=== PATIENT | female | born 1950 | race Caucasian/White ===

== ENCOUNTER 2018-09-07 20:57 | Observation (INO) | payer MEDICARE ==
[2018-09-07] MEDS ORDERED: Albuterol Sulfate 1.25 MG/3 ML NEB ONE (21:14)
[2018-09-07] MEDS ORDERED: methylPREDNISolone Sod Succ/PF 125 MG/2 ML VIAL ONE (21:14)
[2018-09-08 00:19] LABS: Troponin I Less than 0.010 ng/mL (< 0.028)
[2018-09-08 00:50] VITALS: BMI 30.7
[2018-09-08 01:54] LABS: Troponin I Less than 0.010 ng/mL (< 0.028)
[2018-09-08] MEDS ORDERED: Ondansetron PF 4 MG/2 ML Vial IVP PRN (02:43)
[2018-09-08] MEDS ORDERED: PROVENTIL INHALER 6.7 G (200 INHALATIONS) INH PRN (02:46)
--- NOTE | 2018-09-08 03:29 | PDOC.EVN ---
Event Note - Event Note Event Note: h&p dictated [id number]
--- NOTE | 2018-09-08 04:35 | HP ---
PRIMARY CARE PHYSICIAN: Blade. CHIEF COMPLAINT: Tightness in her chest. HISTORY OF PRESENT ILLNESS: This is a 68-year-old female with a history of type 2 diabetes, tobacco use, hypertension who presents with a chief complaint of wheezing and tightness in her chest during a n argument. Patient is accompanied at bedside by her significant other who states that they are here because they do not want her to become "what he has," by which he states that he has only "have his heart is working." At the time of my evaluation, the patient is actually predominantly, extremely tearful over recent st ressful events, stemming from this past or approximately 3 days ago. It appears that the pa tient typically resides with her juifwkrg-is-sgt and granddaughter. On , her birkctqt-lu-feh had issued a vacation or an eviction notice to the patient. Since then, the patient's oopjbjch-ag-f aw and the patient's granddaughter have not been in the home and the patient is extremely frantic reg arding where she will be able to go to live and in addition, she is concerned about the whereabouts o f her granddaughter. REVIEW OF SYSTEMS: As per HPI. Constitutional: No fevers, no chills, no significant weight loss or gain. HEENT: No recent headaches, lightheadedness, dizziness, or vision changes. Cardiovascular: Some component of chest tightness with her shortness of breath, no chest pressure, left-sided arm nu mbness or tingling. Respiratory: Wheezing and chest tightness as noted above. The patient endorses some respiratory congestion and some postnasal drip. Denies cough. Gastrointestinal: Denies any n ausea, vomiting, abdominal pain, diarrhea, or constipation issues. Genitourinary: Denies any dysuri a, changes in urinary frequency, quality or quantity. Remainder of the review of systems is otherwis e negative. PAST MEDICAL HISTORY: As per above; 1. Status post bilateral parathyroid exploration and removal of subtotal parathyroid gland. 2. Status post hysterectomy. 3. Status post appendectomy. 4. Type 2 diabetes. 5. Hypertension. 6. Hyperlipidemia. 7. Chronic obstructive pulmonary disease with "asthmatic component." 8. Rheumatic fever at the age of 6. 9. Osteopenia. 10. Depression. FAMILY HISTORY: Significant for hypertension in her father. Ovarian cancer, type 2 diabetes, hypert ension, and heart disease in her mother and a son with brain tumor who passed in 11/2017. HOME MEDICATIONS: Per the EMR, the patient's regimen currently includes Ventolin inhaler 2 puffs q.4 p.r.n., umeclidinium bromide 1 inhalation daily, montelukast, Singulair 10 mg p.o. at bedtime, fluti casone, salmeterol, or Advair Diskus 250/50 one inhalation b.i.d., ranitidine 150 mg p.o. q.a.m., lis inopril 1 tab p.o. q.a.m., atorvastatin 1 tab p.o. at bedtime, metformin 1 tab p.o. at bedtime, sertr olga 1 tab p.o. q.a.m. ALLERGIES: Include ADHESIVES, LATEX, and LEVAQUIN. SOCIAL HISTORY: The patient is currently without a place to live. Her next closest living relative is a half sister who lives in [place], [place] and the patient states that she guesses she will have t o move there. The patient currently is a half a pack a day smoker. Denies any alcohol or illicit dr ug use. She is accompanied today with her significant other at bedside who would be her medical deci ludwig maker if she is unable to make her own medical decisions. The patient indicates she wishes to b e FULL CODE at this point in time. Please see also the patient's significant social issues as noted above. The patient states she is worried that her pdftqdiy-jq-pva is in a . PHYSICAL EXAMINATION: GENERAL: The patient is awake, alert, appropriate, conversant, extremely anxious. HEENT: Normocephalic, atraumatic. Equal ocular motions are intact. Moist mucous membranes. CARDIOVASCULAR: S1, S2. No murmurs, rubs, or gallops. Pulses 2+ bilateral upper extremities. No p itting pedal edema. RESPIRATORY: Reasonable air movement. No wheezes, rales, or rhonchi. Grossly clear to auscultation . ABDOMEN: Positive bowel sounds, soft, nontender to palpation. MUSCULOSKELETAL: Moving all 4 extremities. IMAGING: On 09/07/2018, chest x-ray: Impression: "Unremarkable AP view of chest." Film was viewed by myself penetration, I grossly agree with the read. LABORATORY DATA: WBC 10.6, hemoglobin 17.0, hematocrit 49.2, platelets 267,000. D-dimer 0.27. Sodi um 140, potassium 3.7, chloride 106, bicarbonate 24, BUN 9, creatinine 0.77, glucose 142, calcium 11. 6, total bilirubin 0.7, AST 16, ALT 17, alkaline phosphatase 152. Troponin less than 0.1 x3. Total protein 7.2, albumin 4.6, TSH 1.879. ASSESSMENT AND PLAN: This is a 68-year-old female who presenting with a chief complaint of chest tig htness. 1. Chest tightness, concern for cardiac etiology. We will go ahead and troponins are negative x3. Recheck an EKG. Check echocardiogram to consider a stress test in this patient as well given her ris k factors. Question of whether or not there is a respiratory component. The patient is a tobacco us er. The patient does not overtly appear to be having chronic obstructive pulmonary disease exacerbat ion. We will continue with DuoNeb as needed. Concern for the possibility of a panic attack as well. 2. Polycythemia with elevated hemoglobin and hematocrit, suspect secondary to tobacco use as noted leti flores. 3. Elevated calcium. We will recheck in the morning and continue to monitor. Elevated alkaline awa sphatase, very mildly elevated, we will again recheck. 4. Diet: Cardiac as tolerated. 5. Activity: As tolerated. 6. Deep venous thrombosis prophylaxis with enoxaparin. Admit the patient to observation status.
[2018-09-08 05:07] LABS: #Lymphocytes 0.8 thou/uL (1.20-3.40); #Monocytes 0.1 thou/uL (0.11-0.59); #Neutrophils 6.6 thou/uL (1.40-6.50); %Basophils 0.5 % (0.0-1.0); %Eosinophils 0.3 % (0.0-10.0); %Lymphocytes 10.7 % (21.0-51.0); %Monocytes 1.2 % (0.0-10.0); %Neutrophils 87.3 % (42.0-75.0); Hemoglobin 15.2 g/dL (12.0-16.0); Mean Corpuscular HGB CONC 32.5 g/dL (32.0-36.0); Mean Corpuscular Hemoglobin 30.6 pg (27.0-31.0); Mean Corpuscular Volume 94.2 fL (78.0-98.0); Mean Platelet Volume 7.2 fL (7.4-10.4); Platelet Count 236 thou/uL (130-400); RBC Distribution Width 12.5 % (11.5-14.5); Red Blood Cell (RBC) Count 4.97 mill/uL (4.20-5.40); White Blood Cell (WBC) Count 7.5 thou/uL (4.8-10.8)
[2018-09-08 05:24] LABS: Anion Gap 13 mmol/L (10-20); BUN (Urea Nitrogen) 11 mg/dL (9.8-20.1); Calc. Creatinine Clearance 77 mL/min (70-130); Calcium 10.6 mg/dL (7.8-10.44); Carbon Dioxide 22 mmol/L (23-31); Cardiac Risk 2.5 (Less than 4.5); Chloride 105 mmol/L (98-107); Cholesterol 173 mg/dl (< 200 Desired); Estimated GFR-MDRD 67; Glucose 270 mg/dL (80-115); HDL Cholesterol 69 mg/dL (>60 Neg Risk); LDL Cholesterol, Calculated 93 mg/dL; Potassium 4.1 mmol/L (3.5-5.1); Sodium 136 mmol/L (136-145); Triglycerides 55 mg/dL (Less than 150)
[2018-09-08] MEDS ORDERED: Mometasone/Formoterol 120 PUFF INHALER INH SCH (06:30)
[2018-09-08] MEDS: Ipratropium Bromide 2.5 ml Neb NEB SCH ×2 (07:08→12:28)
[2018-09-08] MEDS ORDERED: Famotidine 20 MG TAB PO SCH (09:00)
[2018-09-08] MEDS ORDERED: Non-Formulary Item 1 EACH (Ranitidine Hcl [Ranitidine Hcl] 150 MG) PO SCH (09:00)
[2018-09-08] MEDS ORDERED: Lisinopril 10 MG TAB PO SCH (09:00)
[2018-09-08] MEDS ORDERED: Famotidine/PF 20 mg/2ml Vial SLOW IVP SCH (09:00)
[2018-09-08] MEDS ORDERED: Non-Formulary Item 1 EACH (Fluticasone/Salmeterol [Advair Diskus 250/50] 1 INH) IH SCH (09:00)
[2018-09-08] MEDS ORDERED: Enoxaparin Sodium 40 MG/0.4 ML SYRINGE SC SCH (09:00)
[2018-09-08] MEDS ORDERED: Non-Formulary Item 1 EACH (Umeclidinium Bromide [Incruse Ellipta] 1 INH) IH SCH (09:00)
[2018-09-08] MEDS ORDERED: Regadenoson 0.4 MG/5 ML SYRINGE ONE (12:52)
[2018-09-08 16:01] VITALS: BP 143/63; TEMP 98.3
--- NOTE | 2018-09-08 17:00 | NM ---
MYOCARDIAL PERFUSION QUANTITATIVE GATED SPECT STUDY: 09/08/2018 HISTORY: Chest pain. DOSE: Technetium 99m Cardiolite 28 millicuries for the stress portion of the exam and 10 millicuries for th e resting portion of the exam. The patient was stressed using 0.4 mg of Lexiscan. FINDINGS: Myocardial perfusion evaluation demonstrates no definite evidence of myocardial ischemia or scar. No evidence of reversible defects seen. No evidence of fixed defects seen. Ejection fraction measures 82%. IMPRESSION: Normal myocardial perfusion and quantitative gated SPECT study. POS: ZENON
--- NOTE | 2018-09-08 20:27 | DIS ---
DISCHARGE DIAGNOSES: 1. Chest pain, noncardiac, stable. 2. Polycythemia, stable. 3. History of type 2 diabetes, stable. 4. History of hypertension, stable. CONSULTATIONS: None. PERTINENT LABORATORY AND DIAGNOSTIC FINDINGS: WBC 7.5, RBC 4.97, hemoglobin 15.2, platelet 236. Sod ium 136, potassium 4.1, creatinine 0.84. Troponin is less than 0.010 x3. Triglycerides 55, total ch olesterol 173, LDL 93, HDL 69. Echocardiogram showed left ventricular ejection fraction estimated at 55%-60%, mild mitral regurgitation is present, mild tricuspid regurgitation. Stress test revealed n ormal myocardial perfusion with no evidence of fixed defect seen, no evidence of reversible defect se en. HOSPITAL COURSE: Ms. Pollack is a pleasant 68-year-old female who had presented to [facility] via EMS for chest pain. Her initial workup included a serial troponin, which was foun d to be less than 0.010. She had reported going through a situation with her family as they were rec ently evicted from their home. She is worried that she will not have a place to stay. She has been very frantic and also concerned about the whereabouts of her granddaughter. She and her were living with her ktibudfv-vb-ofk and granddaughter. She states that for the past 3 days, they have b een dealing with this situation, which caused her much anxiety. She had developed chest pain with wh eezing and tightness in her chest. She states that this has been ongoing on and off for the last 3 d ays when they first found out about the eviction. She was admitted under observation status. Tropon ins were trended and found to be negative x3. She also underwent stress test, which showed a normal myocardial perfusion scan. An echocardiogram was also done and displayed a left ventricular ejection fraction of 55%-60%. During hospital course, she was continued on her home medications. Her chest pain and shortness of breath resolved spontaneously. She was seen and examined prior to discharge wi th her at bedside. She was instructed to continue her home medication. It was determined th at her chest pain was noncardiac etiology. She was given further resources as she may be moving out of town with family members in the meantime until they find another place to stay. She was given emo tional support. She was instructed to find a PCP and it was recommended that she follow up in 1-2 we eks. She had verbalized her understanding of discharge plan and she was found to be medically stable for discharge home on 09/08/2018. DISCHARGE MEDICATIONS: 1. Lisinopril 10 mg daily. 2. Metformin 500 mg p.o. at bedtime. 3. Sertraline 50 mg p.o. q.a.m. 4. Atorvastatin 20 mg p.o. at bedtime. 5. Ventolin HFA inhaler, 2 puffs inhalation q.4 hours p.r.n. wheezing. 6. Ranitidine 150 mg p.o. q.a.m. 7. Incruse Ellipta 62.5 mcg 1 inhalation daily. 8. Montelukast 10 mg p.o. at bedtime. 9. Fluticasone/salmeterol 250/50 one inhalation b.i.d. FOLLOWUP: The patient was instructed to follow up with primary care physician in 1-2 weeks. CONDITION ON DISCHARGE: Stable. DIET: Heart healthy. ACTIVITY: As tolerated. DISPOSITION: Home on 09/08/2018.
[2018-09-08] MEDS ORDERED: metFORMIN 500 MG TAB PO SCH (21:00)
[2018-09-08] MEDS ORDERED: Atorvastatin Calcium 20 MG TAB PO SCH (21:00)
[2018-09-08] MEDS ORDERED: Montelukast Sodium 10 mg Tablet PO SCH (21:00)
== END 2018-09-08 17:44 | disposition home or self-care (01) ==
LOC: ERS 20:57 → EEVIPCON 20:57 → 2SW 23:54
PROVIDERS: ADMIT Internal Medicine; ATTEND Internal Medicine
DX: R07.89 Other chest pain (principal); D75.1 Secondary polycythemia; E11.9 Type 2 diabetes mellitus without complications; F17.210 Nicotine dependence, cigarettes, uncomplicated; I10 Essential (primary) hypertension; J44.9 Chronic obstructive pulmonary disease, unspecified; E78.5 Hyperlipidemia, unspecified; M85.80 Other specified disorders of bone density and structure, unspecified site; F32.9 Major depressive disorder, single episode, unspecified; E89.2 Postprocedural hypoparathyroidism; E83.52 Hypercalcemia; Z79.84 Long term (current) use of oral hypoglycemic drugs; Z79.899 Other long term (current) drug therapy; Z88.1 Allergy status to other antibiotic agents; Z91.040 Latex allergy status; Z91.048 Other nonmedicinal substance allergy status
CPT/HCPCS: 78452; 80048; 80061; 82962; 84484 ×2; 85025; 93005; 93017; 93306; 94640 ×3; 94760; 96374; 96375; 99285; A9500; G0378 ×2; 36415; 36416; J2785; J2930; J7620; J7644; S0028